=== PATIENT | female | born 1960 | race African-American/Black ===

== ENCOUNTER 2023-06-23 16:53 | Emergency (ER) | payer SELFPAY ==
[~2023-06-23] VITALS: Ht 165.1 cm; Wt 56.7 kg
[2023-06-23 17:14] VITALS: BP_SYST 135; PULSE 79; RESP 17; TEMP 98.1; O2SAT 97
[2023-06-23 22:20] VITALS: BP_SYST 142; PULSE 82; RESP 16; TEMP 97.6; O2SAT 98
== END 2023-06-23 21:04 | disposition home or self-care (01) ==
LOC: SED 16:53
DX: S82.434A Nondisplaced oblique fracture of shaft of right fibula, initial encounter for closed fracture (principal); F12.90 Cannabis use, unspecified, uncomplicated; Z79.899 Other long term (current) drug therapy; Y04.0XXA Assault by unarmed brawl or fight, initial encounter; Y93.89 Activity, other specified; Y92.89 Other specified places as the place of occurrence of the external cause; Y99.8 Other external cause status
CPT/HCPCS: 70450-TC; 71250-TC; 72125-TC; 76376; 99284